=== PATIENT | female | born 1990 | race Caucasian/White ===

== ENCOUNTER → 2016-09-11 | Outpatient (CLI) | payer BC ==
--- NOTE | 2016-09-12 08:33 | US ---
Examination: Greater than 14 weeks transabdominal ultrasound with color Doppler and M-mode evaluatio n. HISTORY: FINDINGS: LMP is 04/24/2016 EVALUATION: Anterior placenta with a cephalic lie and grade 1. Visually amniotic fluid is with in normal limits. Three-vessel cord is seen. Ventricles are within normal limits. Nuchal fold thickness is not provided. Four chamber heart is noted. Heart rate is 142 beats per minute. BIOMETRY AND GESTATIONAL AGE: Biparietal diameter 4.8 cm. The abdominal circumference measures 14.7 cm. The femoral length is 3.3 cm with head circumference of 17.9 cm. Gestational age is 20 weeks and 2 days. The expected date of delivery is approximately 01/27/2017. Fetus weight is 339 grams. Overall the fetus is within the 57th percentile. Other detail anatomy summarized into PACs sheet after the images. No anatomical anomalies. IMPRESSION: Single active IU with cephalic fetus. Anterior placenta with grade 1, no placenta previa. No anomalies are seen. Amniotic fluid appears within normal limits.
== END | disposition home or self-care (01) ==
LOC: MW.US 08-20 15:58
PROVIDERS: ATTEND Advanced Practice Midwife
DX: Z34.90 Encounter for supervision of normal pregnancy, unspecified, unspecified trimester (principal)
CPT/HCPCS: 36415; 76805; 76805-26; 81003; 82105; 82677; 84702; 85025; 86336; 86592; 86762; 86803; 86850; 86900; 86901; 87086; 87340; 87389

== ENCOUNTER → 2016-09-20 | Outpatient (CLI) | payer SELFPAY | END | disposition home or self-care (01) | LOC: MW.CHOBGYN 15:53 | PROVIDERS: ATTEND Advanced Practice Midwife | DX: Z34.90 Encounter for supervision of normal pregnancy, unspecified, unspecified trimester (principal) | CPT/HCPCS: 87491; 87591 ==

== ENCOUNTER → 2016-10-19 | Outpatient (CLI) | payer BC | LOC: MW.CHOBGYN 15:21 | PROVIDERS: ATTEND Advanced Practice Midwife | DX: Z34.90 Encounter for supervision of normal pregnancy, unspecified, unspecified trimester (principal); E07.9 Disorder of thyroid, unspecified | CPT/HCPCS: 36415; 82950; 84439; 84443; 85027; 86850 ==

== ENCOUNTER 2017-02-05 15:38 | Inpatient (IN) | payer BC ==
[2017-02-05] MEDS ORDERED: Terbutaline 1 MG/ML SDV SUBCUT PRN (16:18)
[2017-02-05] MEDS ORDERED: Sodium Chloride 0.9% 10 ML Syringe FLUSH PRN (16:18)
[2017-02-05] MEDS ORDERED: Misoprostol 200 MCG Tab PO PRN (16:18)
[2017-02-05] MEDS ORDERED: Lidocaine 1% 50 ML MDV INJECT PRN (16:18)
[2017-02-05] MEDS ORDERED: Water For Irrigation,Sterile 1,000 ML Container IRR PRN (16:18)
[2017-02-05] MEDS ORDERED: Sodium Chloride 0.9% 2.5 ML Syringe FLUSH PRN (16:18)
[2017-02-05] MEDS ORDERED: Carboprost Tromethamine 250 MCG/1 ML Amp IM PRN (16:18)
[2017-02-05] MEDS ORDERED: Methylergonovine 0.2 MG/1 ML Amp IM PRN (16:18)
[2017-02-05] MEDS ORDERED: Lactated Ringers 1,000 ML IV SCH (16:30)
[2017-02-05] MEDS ORDERED: Oxytocin/Lactated Ringers 30 UNIT/500 ML BAG IV SCH ×2 (16:30)
[2017-02-05] MEDS: Misoprostol 25 MCG (1/4 of 100 MCG) Tab PO SCH ×2 (16:57→21:30)
[2017-02-05] MEDS: Misoprostol 25 MCG (1/4 of 100 MCG) Tab VAG PRN ×2 (16:57→21:30)
--- NOTE | 2017-02-05 17:17 | PCM.LDHP ---
L&D History of Present Illness - General Date of Service: 02/05/17 Admit Problem/Dx: Patient Status Order with Admit Dx/Problem 02/05/17 16:18 Patient Status [ADT] Routine Admission Diagnosis/Problem Admission Diagnosis/Problem -related examination 02/05/17 17:13 27 yo EDC 01/29/2017 41 0/7wks gestation. O+, RI, GBS neg. complicated by Hypothyroidism and elevated bp (just today). IOL for post dates and elevated bp. Source of Information: Patient History Limitations: Reports: No Limitations - History of Present Illness Improves with: Reports: None Worsens with: Reports: None Associated Symptoms: Reports: N - Related Data Allergies/Adverse Reactions: Allergies Allergy/AdvReac Type Severity Reaction Status Date / Time No Known Allergies Allergy Verified 03/26/16 12:32 H&P Review of Systems - Review of Systems: Review Of Systems: See Below General: Reports: No Symptoms HEENT: Reports: No Symptoms Pulmonary: Reports: No Symptoms Cardiovascular: Reports: No Symptoms Gastrointestinal: Reports: No Symptoms Genitourinary: Reports: No Symptoms Musculoskeletal: Reports: No Symptoms Skin: Reports: No Symptoms Psychiatric: Reports: No Symptoms Neurological: Reports: No Symptoms Hematologic/Lymphatic: Reports: No Symptoms Immunologic: Reports: No Symptoms L&D Exam - Exam Exam: See Below - Vital Signs Weight: 105.687 kg - OB Specific Movement: Active Heart Tones: Present Heart Tones per Min: 140 Heart Rate (FHR) Variability: Moderate (6-25 bmp) Presentation: Vertex - March Score March Score Cervix Position: Midposition March Score Consistency: Soft March Score Effacement: 51-70% March Score Dilation: 1-2 cm March Score 's Station: -2 March Score Total: 7 - Exam General: Alert, Oriented, Cooperative HEENT: Hearing Intact, Mucosa Moist & [place] Lungs: Normal Respiratory Effort GI/Abdominal Exam: Soft, Non-Tender, No Organomegaly, No Distention, No Mass, Pelvis Stable Rectal Exam: Deferred Genitourinary: Normal external exam, Normal bimanual exam Back Exam: Full Range of Motion Extremities: Normal Range of Motion, Non-Tender, No Pedal Edema, Normal Capillary Refill Skin: Warm, Dry, Intact Neurological: Reflexes Equal Bilateral Psychiatric: Alert, Normal Affect, Normal Mood - Patient Data Lab Results Last 24 hrs: Laboratory Results - last 24 hr 02/05/17 Range/Units 16:50 WBC 10.91 (4.0-11.0) K/uL RBC 4.65 (4.30-5.90) M/uL Hgb 11.5 L (12.0-16.0) g/dL Hct 36.0 (36.0-46.0) % MCV 77.4 L (80.0-98.0) fL MCH 24.7 L (27.0-32.0) pg MCHC 31.9 (31.0-37.0) g/dL RDW Std Deviation 39.9 (28.0-62.0) fl RDW Coeff of Yolande 14 (11.0-15.0) % Plt Count 228 (150-400) K/uL MPV 10.90 (7.40-12.00) fL Nucleated RBC % 0.0 /100WBC Nucleated RBCs # 0 K/uL Result Diagrams: 02/05/17 16:50 - Problem List (1) Supervision of normal IUP (intrauterine ) in primigravida SNOMED Code(s): 73043349, 268901827, 989244803, 490010954 ICD Code: Z34.00 - ENCNTR FOR SUPRVSN OF NORMAL FIRST , UNSP TRIMESTER Status: Acute Priority: High Current Visit: Yes Qualifiers: Trimester: third trimester Qualified Code(s): Z34.03 - Encounter for supervision of normal first , third trimester (2) Hypothyroid in , antepartum SNOMED Code(s): 643148437971 ICD Code: O99.280 - ENDO, NUTRITIONAL AND METAB DISEASES COMP PREG, UNSP TRI ; E03.9 - HYPOTHYROIDISM, UNSPECIFIED Status: Acute Priority: High Current Visit: Yes (3) Elevated blood pressure affecting in third trimester, antepartum SNOMED Code(s): 23877097, 31818004, 739415604 ICD Code: O13.3 - GESTATIONAL HTN W/O SIGNIFICANT PROTEINURIA, THIRD TRIMESTER Status: Acute Priority: High Current Visit: Yes Problem List Initiated/Reviewed/Updated: Yes Orders Last 24hrs: Active Orders 24 hr Category Date Time Status Patient Status [ADT] Routine ADT 02/05/17 16:18 Active Bedrest Bathroom Privileges [RC] ASDIRECTED Care 02/05/17 16:18 Active Communication Order [RC] ASDIRECTED Care 02/05/17 16:18 Active Communication Order [RC] ASDIRECTED Care 02/05/17 16:18 Active Communication Order [RC] ASDIRECTED Care 02/05/17 16:18 Active Heart Tones [RC] CONTINUOUS Care 02/05/17 16:18 Active Non Stress Test [RC] PER UNIT ROUTINE Care 02/05/17 16:18 Active May Shower [RC] ASDIRECTED Care 02/05/17 16:18 Active Notify Provider [RC] PRN Care 02/05/17 16:18 Active Notify Provider [RC] PRN Care 02/05/17 16:18 Active Notify Provider [RC] PRN Care 02/05/17 16:18 Active Notify Provider [RC] STAT Care 02/05/17 16:18 Active Oxygen Therapy [RC] ASDIRECTED Care 02/05/17 16:18 Active Up ad Nabila [RC] ASDIRECTED Care 02/05/17 16:18 Active Vaginal Exam [RC] PRN Care 02/05/17 16:18 Active Vaginal Exam [RC] PRN Care 02/05/17 16:18 Active Vital Signs [RC] PER UNIT ROUTINE Care 02/05/17 16:18 Active Vital Signs [RC] PER UNIT ROUTINE Care 02/05/17 16:18 Active Regular Diet [DIET] Diet 02/06/17 Breakfast Active Regular Diet [DIET] Diet 02/06/17 Breakfast Active TYPE AND SCREEN [BBK] Routine Lab 02/05/17 16:50 Received Carboprost Tromethamine [Hemabate DS] Med 02/05/17 16:18 Active 250 mcg IM ASDIRECTED PRN Lactated Ringers [Ringers, Lactated] 1,000 ml Med 02/05/17 16:30 Active IV ASDIRECTED Lidocaine 1% [Xylocaine 1%] Med 02/05/17 16:18 Active 50 ml INJECT .ONCE PRN Methylergonovine [Methergine] Med 02/05/17 16:18 Active 0.2 mg IM ASDIRECTED PRN Misoprostol [Cytotec] Med 02/05/17 16:18 Active 200 mcg PO .ONCE PRN Misoprostol [Cytotec] Med 02/05/17 16:30 Active 25 mcg PO Q4H Misoprostol [Cytotec] Med 02/05/17 16:18 Active 25 mcg VAG Q4H PRN Nalbuphine [Nubain] Med 02/05/17 16:18 Active 10 mg IVPUSH ASDIRECTED PRN Oxytocin/Lactated Ringers [Pitocin in LR 30 Units/500 Med 02/05/17 16:30 Active ML] 30 unit in 500 ml IV TITRATE Sodium Chloride 0.9% [Saline Flush] Med 02/05/17 16:18 Active 10 ml FLUSH ASDIRECTED PRN Sodium Chloride 0.9% [Saline Flush] Med 02/05/17 16:18 Active 2.5 ml FLUSH ASDIRECTED PRN Terbutaline [Brethine] Med 02/05/17 16:18 Active 0.25 mg SUBCUT ASDIRECTED PRN Water For Irrigation,Sterile [Sterile Water for Med 02/05/17 16:18 Active Irrigation] 1,000 ml IRR ASDIRECTED PRN Scalp Electrode [WOMSER] Per Unit Routine Oth 02/05/17 16:18 Ordered Medication Administration Instruction [OM.PC] Q3H Oth 02/05/17 16:30 Ordered Peripheral IV Insertion Adult [OM.PC] Routine Oth 02/05/17 16:18 Ordered Resuscitation Status Routine Resus Stat 02/05/17 16:18 Ordered Medication Orders Carboprost Tromethamine (Hemabate Ds) 250 mcg IM ASDIRECTED PRN PRN Reason: Post Hemorrhage Lactated Ringer's (Ringers, Lactated) 1,000 mls @ 150 mls/hr IV ASDIRECTED PONCHO Oxytocin/Lactated Ringer's (Pitocin In Lr 30 Units/500 Ml) 30 unit in 500 mls @ 2 mls/hr IV TITRATE PONCHO; 2 MUNITS/MIN PRN Reason: Protocol Lidocaine HCl (Xylocaine 1%) 50 ml INJECT .ONCE PRN PRN Reason: Laceration repair Methylergonovine Maleate (Methergine) 0.2 mg IM ASDIRECTED PRN PRN Reason: Post Hemorrhage Misoprostol (Cytotec) 200 mcg PO .ONCE PRN PRN Reason: Post Hemorrhage Misoprostol (Cytotec) 25 mcg PO Q4H PONCHO Last Admin: 02/05/17 16:57 Dose: 25 mcg Misoprostol (Cytotec) 25 mcg VAG Q4H PRN PRN Reason: Cervical Ripening Last Admin: 02/05/17 16:57 Dose: 25 mcg Nalbuphine HCl (Nubain) 10 mg IVPUSH ASDIRECTED PRN PRN Reason: Pain (severe 7-10) Sodium Chloride (Saline Flush) 10 ml FLUSH ASDIRECTED PRN PRN Reason: Keep Vein Open Sodium Chloride (Saline Flush) 2.5 ml FLUSH ASDIRECTED PRN PRN Reason: Keep Vein Open Sterile Water (Sterile Water For Irrigation) 1,000 ml IRR ASDIRECTED PRN PRN Reason: delivery Terbutaline Sulfate (Brethine) 0.25 mg SUBCUT ASDIRECTED PRN PRN Reason: Tacysystole Assessment/Plan Comment:: IOL A: 27 yo EDC 01/29/2017 41 0/7wks gestation. O+, RI, GBS neg. complicated by Hypothyroidism and elevated bp (just today). IOL for post dates and elevated bp. P: Admit, cytotec to pitocin per protocol, epidural prn, anticipate . Dr Vidal updated on pt status
[2017-02-06] MEDS: Misoprostol 25 MCG (1/4 of 100 MCG) Tab PO SCH ×2 (01:17→19:45)
[2017-02-06] MEDS: Misoprostol 25 MCG (1/4 of 100 MCG) Tab VAG PRN (01:18)
[2017-02-06] MEDS: Nalbuphine 10 MG/1 ML Vial IVPUSH PRN ×2 (05:50→06:54)
[2017-02-06] MEDS ORDERED: Lanolin 100% Cream 7 GM Tube TOP PRN (08:40)
[2017-02-06] MEDS ORDERED: Benzocaine/Menthol 20%-0.5% Spray 78 GM Cannister TOP PRN (08:40)
[2017-02-06] MEDS ORDERED: Acetaminophen 500 MG Tab PO PRN ×2 (08:40)
[2017-02-06] MEDS ORDERED: Ibuprofen 800 MG Tab PO PRN (08:40)
[2017-02-06] MEDS ORDERED: Witch Hazel Medicated Pads 40/Jar TOP PRN (08:40)
[2017-02-06] MEDS ORDERED: Ibuprofen 400 MG Tab PO PRN (08:40)
[2017-02-06] MEDS ORDERED: Bisacodyl 10 MG Supp RECTAL PRN (08:40)
[2017-02-06] MEDS ORDERED: oxyCODONE 5 MG Tab PO PRN (08:40)
[2017-02-06] MEDS ORDERED: Docusate Sodium 100 MG Cap PO PRN (08:40)
--- NOTE | 2017-02-06 17:11 | PCM.DEL ---
L & D Note - General Info Date of Service: 02/06/17 Mother's Due Date: 01/29/17 - Delivery Note Cervical Ripening Method: Misoprostil Delivery Outcome: Livebirth Delivery Method: Spontaneous Vaginal Delivery Infant Delivery Mode: Spontaneous Presentation: Vertex Nuchal Cord: Present Anesthesia Type: Other (see below) (IV pain medication) Amniotic Fluid Description: Clear Episiotomy Type: None Laceration: 1st Degree Suture type: Vicryl Suture size: 3-0 Placenta: Intact, Spontaneous Cord: 3 Vessels Estimated Blood Loss: 150 Resuscitation Needed: No [place]: Stimulated Score 1 min: 8 Score 5 min: 9 Second Stage Interventions: Reports: Pushing Effectively Delivery Comments (Free Text/Narrative):: of viable male over intact perineum. Head delivered with great pushing, nuchle x1 loose, reduced over head, shoulder and body followed easily. to mothers abdomen with RN at bs to evaluate baby. Spont cry. Delayed cord clamping. Pitocin to IVF. Cord clamped and cut by FOB. Cord blood collected. Placenta delivered grossly intact. Inspection noted 1st degree lac that was repaired with 3-0 paula in usual manor. Counts correct 12/10. APGARS 8/9, Wt: 9lb 4090gm. EBL 150cc. Mother and baby left in stable condition for recovery bonding well. - General Info Date of Service: 02/06/17 Admission Dx/Problem (Free Text): Patient Status Order with Admit Dx/Problem 02/05/17 16:18 Patient Status [ADT] Routine Admission Diagnosis/Problem Admission Diagnosis/Problem -related examination 02/05/17 17:13 27 yo EDC 01/29/2017 41 0/7wks gestation. O+, RI, GBS neg. complicated by Hypothyroidism and elevated bp (just today). IOL for post dates and elevated bp. Functional Status: Reports: Pain Controlled, Tolerating Diet - Review of Systems General: Reports: No Symptoms HEENT: Reports: No Symptoms Pulmonary: Reports: No Symptoms Cardiovascular: Reports: No Symptoms Gastrointestinal: Reports: No Symptoms Genitourinary: Reports: No Symptoms Musculoskeletal: Reports: No Symptoms Skin: Reports: No Symptoms Neurological: Reports: No Symptoms Psychiatric: Reports: No Symptoms - Patient Data Weight - Most Recent: 105.687 kg Lab Results Last 24 Hours: Laboratory Results - last 24 hr 02/05/17 Range/Units 16:50 Blood Type O POSITIVE Antibody Screen NEGATIVE Med Orders - Current: Current Medications Acetaminophen (Tylenol Extra Strength) 500 mg PO Q4H PRN PRN Reason: Pain Acetaminophen (Tylenol Extra Strength) 1,000 mg PO Q4H PRN PRN Reason: Pain Benzocaine/Menthol (Dermoplast Pain Relief 20%-0.5% [place]) 78 gm TOP ASDIRECTED PRN PRN Reason: Perineal Comfort Measure Bisacodyl (Dulcolax) 10 mg RECTAL .ONCE PRN PRN Reason: Constipation Docusate Sodium (Colace) 100 mg PO BID PRN PRN Reason: Constipation Emollient Ointment (Lansinoh Hpa) 0 gm TOP ASDIRECTED PRN PRN Reason: Sore Nipples Ibuprofen (Motrin) 400 mg PO Q4H PRN PRN Reason: Pain Ibuprofen (Motrin) 800 mg PO Q6H PRN PRN Reason: Pain Oxycodone HCl (Oxycodone) 5 mg PO Q2H PRN PRN Reason: Pain Witch Carley (Tucks) 1 pad TOP ASDIRECTED PRN PRN Reason: comfort care Discontinued Medications Carboprost Tromethamine (Hemabate Ds) 250 mcg IM ASDIRECTED PRN PRN Reason: Post Hemorrhage Lactated Ringer's (Ringers, Lactated) 1,000 mls @ 150 mls/hr IV ASDIRECTED PONCHO Oxytocin/Lactated Ringer's (Pitocin In Lr 30 Units/500 Ml) 30 unit in 500 mls @ 999 mls/hr IV TITRATE PONCHO PRN Reason: 999 MUNITS/MIN Stop: 02/05/17 17:01 Last Admin: 02/06/17 08:20 Dose: 999 munits/min, 999 mls/hr Oxytocin/Lactated Ringer's (Pitocin In Lr 30 Units/500 Ml) 30 unit in 500 mls @ 2 mls/hr IV TITRATE PONCHO; 2 MUNITS/MIN PRN Reason: Protocol Lidocaine HCl (Xylocaine 1%) 50 ml INJECT .ONCE PRN PRN Reason: Laceration repair Methylergonovine Maleate (Methergine) 0.2 mg IM ASDIRECTED PRN PRN Reason: Post Hemorrhage Misoprostol (Cytotec) 200 mcg PO .ONCE PRN PRN Reason: Post Hemorrhage Misoprostol (Cytotec) 25 mcg PO Q4H PONCHO Last Admin: 02/06/17 01:17 Dose: 25 mcg Misoprostol (Cytotec) 25 mcg VAG Q4H PRN PRN Reason: Cervical Ripening Last Admin: 02/06/17 01:18 Dose: 25 mcg Nalbuphine HCl (Nubain) 10 mg IVPUSH ASDIRECTED PRN PRN Reason: Pain (severe 7-10) Last Admin: 02/06/17 06:54 Dose: 10 mg Sodium Chloride (Saline Flush) 10 ml FLUSH ASDIRECTED PRN PRN Reason: Keep Vein Open Sodium Chloride (Saline Flush) 2.5 ml FLUSH ASDIRECTED PRN PRN Reason: Keep Vein Open Sterile Water (Sterile Water For Irrigation) 1,000 ml IRR ASDIRECTED PRN PRN Reason: delivery Terbutaline Sulfate (Brethine) 0.25 mg SUBCUT ASDIRECTED PRN PRN Reason: Tacysystole - Exam General: Alert, Oriented, Cooperative, No Acute Distress Lungs: Normal Respiratory Effort GI/Abdominal Exam: Soft, Non-Tender, No Organomegaly, No Distention (Female) Exam: Normal External Exam, Normal Bimanual Exam, Vaginal Bleeding Back Exam: Full Range of Motion Extremities: Normal Range of Motion, Non-Tender, No Pedal Edema, Normal Capillary Refill Skin: Warm, Dry, Intact Wound/Incisions: Healing Well Neurological: No New Focal Deficit, Normal Speech, Normal Tone Psy/Mental Status: Alert, Normal Affect, Normal Mood - Problem List & Annotations (1) Supervision of normal IUP (intrauterine ) in primigravida SNOMED Code(s): 73544892, 882493490, 274928507, 442544701 Code(s): Z34.00 - ENCNTR FOR SUPRVSN OF NORMAL FIRST , UNSP TRIMESTER Status: Acute Priority: High Current Visit: Yes Qualifiers: Trimester: third trimester Qualified Code(s): Z34.03 - Encounter for supervision of normal first , third trimester (2) Hypothyroid in , antepartum SNOMED Code(s): 525602912820 Code(s): O99.280 - ENDO, NUTRITIONAL AND METAB DISEASES COMP PREG, UNSP TRI; E03.9 - HYPOTHYROIDISM, UNSPECIFIED Status: Acute Priority: High Current Visit: Yes (3) Elevated blood pressure affecting in third trimester, antepartum SNOMED Code(s): 25510794, 14862145, 880587743 Code(s): O13.3 - GESTATIONAL HTN W/O SIGNIFICANT PROTEINURIA, THIRD TRIMESTER Status: Acute Priority: High Current Visit: Yes (4) (normal spontaneous vaginal delivery) SNOMED Code(s): 41603696 Code(s): O80 - ENCOUNTER FOR FULL-TERM UNCOMPLICATED DELIVERY Status: Acute Priority: High Current Visit: Yes - Problem List Review Problem List Initiated/Reviewed/Updated: Yes - My Orders Last 24 Hours: My Active Orders 02/05/17 16:18 Bedrest Bathroom Privileges [RC] ASDIRECTED Communication Order [RC] ASDIRECTED Communication Order [RC] ASDIRECTED Communication Order [RC] ASDIRECTED Heart Tones [RC] CONTINUOUS Non Stress Test [RC] PER UNIT ROUTINE May Shower [RC] ASDIRECTED Notify Provider [RC] PRN Notify Provider [RC] PRN Notify Provider [RC] PRN Notify Provider [RC] STAT Oxygen Therapy [RC] ASDIRECTED Up ad Nabila [RC] ASDIRECTED Vaginal Exam [RC] PRN Vaginal Exam [RC] PRN Vital Signs [RC] PER UNIT ROUTINE Vital Signs [RC] PER UNIT ROUTINE 02/06/17 08:40 May Shower [RC] ASDIRECTED Up ad Nabila [RC] ASDIRECTED Vital Signs [RC] PER UNIT ROUTINE Acetaminophen [Tylenol Extra Strength] 1,000 mg PO Q4H PRN Acetaminophen [Tylenol Extra Strength] 500 mg PO Q4H PRN Benzocaine/Menthol [Dermoplast Pain Relief 20%-0.5% [place]] 78 gm TOP ASDIRECTED PRN Bisacodyl [Dulcolax] 10 mg RECTAL .ONCE PRN Docusate Sodium [Colace] 100 mg PO BID PRN Ibuprofen [Motrin] 400 mg PO Q4H PRN Ibuprofen [Motrin] 800 mg PO Q6H PRN Lanolin [Lansinoh HPA] See Dose Instructions TOP ASDIRECTED PRN Witch [place]ley [Tucks] 1 pad TOP ASDIRECTED PRN oxyCODONE 5 mg PO Q2H PRN Assess Lochia [WOMSER] Per Unit Routine Assess Uterine Involution [WOMSER] Per Unit Routine Peripheral IV Discontinue [OM.PC] Routine Resuscitation Status Routine 02/06/17 08:41 Patient Status [ADT] Routine 02/06/17 Breakfast Regular Diet [DIET] - Assessment Assessment:: Delivery viable male. APGARS 8/9, Wt: 9lb 4090gm. 1st degree lac with repair, EBL 150cc, Stable - Plan Plan:: IOL A: 27 yo EDC 01/29/2017 41 0/7wks gestation. O+, RI, GBS neg. complicated by Hypothyroidism and elevated bp (just today). IOL for post dates and elevated bp. P: Admit, cytotec to pitocin per protocol, epidural prn, anticipate . Dr Vidal updated on pt status Delivery P: Routine pp plan of care
--- NOTE | 2017-02-07 08:07 | PCM.DCSUM1 ---
Discharge Summary - Hospital Course Free Text/Narrative:: Discharge home with . Follow up 6 weeks for post or sooner if needed. - Discharge Data Discharge Date: 02/07/17 Discharge Disposition: Home, Self-Care 01 Condition: Good - Discharge Diagnosis/Problem(s) (1) Supervision of normal IUP (intrauterine ) in primigravida SNOMED Code(s): 58533188, 408218734, 265431306, 552437652 ICD Code: Z34.00 - ENCNTR FOR SUPRVSN OF NORMAL FIRST , UNSP TRIMESTER Status: Acute Priority: High Current Visit: Yes Qualifiers: Trimester: third trimester Qualified Code(s): Z34.03 - Encounter for supervision of normal first , third trimester (2) Hypothyroid in , antepartum SNOMED Code(s): 201984551588 ICD Code: O99.280 - ENDO, NUTRITIONAL AND METAB DISEASES COMP PREG, UNSP TRI ; E03.9 - HYPOTHYROIDISM, UNSPECIFIED Status: Acute Priority: High Current Visit: Yes (3) Elevated blood pressure affecting in third trimester, antepartum SNOMED Code(s): 96500044, 28518673, 444626313 ICD Code: O13.3 - GESTATIONAL HTN W/O SIGNIFICANT PROTEINURIA, THIRD TRIMESTER Status: Acute Priority: High Current Visit: Yes (4) (normal spontaneous vaginal delivery) SNOMED Code(s): 85559326 ICD Code: O80 - ENCOUNTER FOR FULL-TERM UNCOMPLICATED DELIVERY Status: Acute Priority: High Current Visit: Yes - Patient Instructions Diet: Usual Diet as Tolerated Activity: As Tolerated, Rest and Relax Today Driving: May Drive Today Showering/Bathing: May Shower Notify Provider of: Fever, Increased Pain, Swelling and Redness, Nausea and/or Vomiting Other/Special Instructions: Discharge home with infant. Follow up 6 weeks for post or sooner if needed. - Discharge Plan - General Info Date of Service: 02/07/17 Admission Dx/Problem (Free Text: Patient Status Order with Admit Dx/Problem 02/05/17 16:18 Patient Status [ADT] Routine Admission Diagnosis/Problem Admission Diagnosis/Problem -related examination 02/05/17 17:13 27 yo EDC 01/29/2017 41 0/7wks gestation. O+, RI, GBS neg. complicated by Hypothyroidism and elevated bp (just today). IOL for post dates and elevated bp. Functional Status: Reports: Pain Controlled, Tolerating Diet, Ambulating, Urinating - Review of Systems General: Reports: No Symptoms HEENT: Reports: No Symptoms Pulmonary: Reports: No Symptoms Cardiovascular: Reports: No Symptoms Gastrointestinal: Reports: No Symptoms Genitourinary: Reports: No Symptoms Musculoskeletal: Reports: No Symptoms Skin: Reports: No Symptoms Neurological: Reports: No Symptoms Psychiatric: Reports: No Symptoms - Patient Data Vitals - Most Recent: Last Vital Signs Temp 36.1 C 02/07/17 04:40 Pulse 75 02/07/17 04:40 Resp 16 02/07/17 04:40 BP 111/55 L 02/07/17 04:40 Pulse Ox 99 02/07/17 04:40 Weight - Most Recent: 105.687 kg Med Orders - Current: Current Medications Acetaminophen (Tylenol Extra Strength) 500 mg PO Q4H PRN PRN Reason: Pain Acetaminophen (Tylenol Extra Strength) 1,000 mg PO Q4H PRN PRN Reason: Pain Benzocaine/Menthol (Dermoplast Pain Relief 20%-0.5% [place]) 78 gm TOP ASDIRECTED PRN PRN Reason: Perineal Comfort Measure Bisacodyl (Dulcolax) 10 mg RECTAL .ONCE PRN PRN Reason: Constipation Docusate Sodium (Colace) 100 mg PO BID PRN PRN Reason: Constipation Emollient Ointment (Lansinoh Hpa) 0 gm TOP ASDIRECTED PRN PRN Reason: Sore Nipples Ibuprofen (Motrin) 400 mg PO Q4H PRN PRN Reason: Pain Ibuprofen (Motrin) 800 mg PO Q6H PRN PRN Reason: Pain Last Admin: 02/07/17 04:45 Dose: 800 mg Oxycodone HCl (Oxycodone) 5 mg PO Q2H PRN PRN Reason: Pain Witch Carley (Tucks) 1 pad TOP ASDIRECTED PRN PRN Reason: comfort care Last Admin: 02/06/17 19:03 Dose: 1 tub Discontinued Medications Carboprost Tromethamine (Hemabate Ds) 250 mcg IM ASDIRECTED PRN PRN Reason: Post Hemorrhage Lactated Ringer's (Ringers, Lactated) 1,000 mls @ 150 mls/hr IV ASDIRECTED PONCHO Oxytocin/Lactated Ringer's (Pitocin In Lr 30 Units/500 Ml) 30 unit in 500 mls @ 999 mls/hr IV TITRATE PONCHO PRN Reason: 999 MUNITS/MIN Stop: 02/05/17 17:01 Last Admin: 02/06/17 08:20 Dose: 999 munits/min, 999 mls/hr Oxytocin/Lactated Ringer's (Pitocin In Lr 30 Units/500 Ml) 30 unit in 500 mls @ 2 mls/hr IV TITRATE PONCHO; 2 MUNITS/MIN PRN Reason: Protocol Lidocaine HCl (Xylocaine 1%) 50 ml INJECT .ONCE PRN PRN Reason: Laceration repair Methylergonovine Maleate (Methergine) 0.2 mg IM ASDIRECTED PRN PRN Reason: Post Hemorrhage Misoprostol (Cytotec) 200 mcg PO .ONCE PRN PRN Reason: Post Hemorrhage Misoprostol (Cytotec) 25 mcg PO Q4H PONCHO Last Admin: 02/06/17 19:45 Dose: Not Given Misoprostol (Cytotec) 25 mcg VAG Q4H PRN PRN Reason: Cervical Ripening Last Admin: 02/06/17 01:18 Dose: 25 mcg Nalbuphine HCl (Nubain) 10 mg IVPUSH ASDIRECTED PRN PRN Reason: Pain (severe 7-10) Last Admin: 02/06/17 06:54 Dose: 10 mg Sodium Chloride (Saline Flush) 10 ml FLUSH ASDIRECTED PRN PRN Reason: Keep Vein Open Sodium Chloride (Saline Flush) 2.5 ml FLUSH ASDIRECTED PRN PRN Reason: Keep Vein Open Sterile Water (Sterile Water For Irrigation) 1,000 ml IRR ASDIRECTED PRN PRN Reason: delivery Terbutaline Sulfate (Brethine) 0.25 mg SUBCUT ASDIRECTED PRN PRN Reason: Tacysystole - Exam General: Reports: Cooperative, No Acute Distress Lungs: Reports: Normal Respiratory Effort GI/Abdominal Exam: Soft, Non-Tender, No Organomegaly, No Distention (Female) Exam: Vaginal Bleeding Rectal (Female) Exam: Deferred Back Exam: Reports: Full Range of Motion Extremities: Normal Range of Motion, Non-Tender, No Pedal Edema, Normal Capillary Refill Skin: Reports: Warm, Dry, Intact Wound/Incisions: Reports: Healing Well Neurological: Reports: No New Focal Deficit, Normal Gait, Normal Speech, Normal Tone Psy/Mental Status: Reports: Alert, Normal Affect, Normal Mood *Q Meaningful Use (DIS) - VTE *Q VTE Criteria *Q: - Stroke *Q Stroke Criteria *Q: - AMI *Q AMI Criteria *Q:
[2017-02-07 14:24] VITALS: BP 126/73
== END 2017-02-07 13:40 | disposition home or self-care (01) | DRG 560 ==
LOC: MW.OBCHECK 15:38 → MW.OB 15:52 → MW.OBCHECK 16:18 → OBSVTOIN 02-06 08:18
PROVIDERS: ADMIT Obstetrics & Gynecology; ATTEND Obstetrics & Gynecology
PROC: 10E0XZZ Delivery of Products of Conception, External Approach (ICD-10-PCS; principal; 2017-02-06)
PROC: 0HQ9XZZ Repair Perineum Skin, External Approach (ICD-10-PCS; 2017-02-06)
PROC: 3E0P7GC Introduction of Other Therapeutic Substance into Female Reproductive, Via Natural or Artificial Opening (ICD-10-PCS; 2017-02-06)
DX: O48.0 Post-term pregnancy (principal); O99.284 Endocrine, nutritional and metabolic diseases complicating childbirth; E03.9 Hypothyroidism, unspecified; O13.4 Gestational [pregnancy-induced] hypertension without significant proteinuria, complicating childbirth; O70.0 First degree perineal laceration during delivery; Z3A.41 41 weeks gestation of pregnancy; Z37.0 Single live birth
CPT/HCPCS: 36415; 59025; 85027; 86850; 86900; 86901; A9270-GY; J2300